=== PATIENT | female | born 1965 | race Caucasian/White ===

== ENCOUNTER → 2018-10-05 19:13 | Outpatient (REF) | payer OTHER, SELFPAY ==
[2018-10-05 19:37] LABS: Alanine Aminotransferase 26 IU/L (9-52); Albumin 4.2 g/dL (3.5-5.0); Albumin Globulin Ratio 1.6 (1.0-2.8); Alkaline Phosphatase 44 U/L (38-126); Aspartate Aminotransferase 26 IU/L (14-36); BUN Creatinine Ratio 23.8 (6-22); Bilirubin Total 0.3 mg/dL (0.2-1.3); Blood Urea Nitrogen 19 mg/dL (7-17); Calcium 9.4 mg/dL (8.4-10.2); Carbon Dioxide 25 mmol/L (22-32); Chloride 102 mmol/L (98-107); Cholesterol 189 mg/dL (140-199); Estimated Glomerular Filt Rate > 60.0 mL/min (>60); Globulin 2.6 g/dL (1.7-4.1); Glucose 109 mg/dL (70-100); HDL Cholesterol 50 mg/dL (40-60); HEMOLYSIS < 15 (0-50); LDL Cholesterol Calculated 106 mg/dL (<100); Potassium 4.4 mmol/L (3.4-5.1); Sodium 138 mmol/L (137-145); Total Protein 6.8 g/dL (6.3-8.2); Triglycerides 165 mg/dL (35-150)
[2018-10-05 19:39] LABS: Add Manual Diff / Slide Review NO; Basophils Percent Auto 0.4 % (0-2); Hematocrit 42.2 % (36-46); Hemoglobin 14.3 g/dL (12.0-16.0); Lymphocytes Percent Auto 24.7 % (25-40); Mean Corpuscular HGB Conc 33.9 % (30-36); Mean Corpuscular Hemoglobin 31.6 PG (26-34); Mean Corpuscular Volume 93.1 fL (80-100); Monocytes Percent Auto 6.7 % (3-14); Neutrophils Absolute Auto 8400 /uL (1500-7000); Neutrophils Percent Auto 66.2 % (50-75); Platelet Count 295 X10^3/uL (150-400); Red Blood Cell Count 4.53 X10^6/uL (4.0-5.2); Red Cell Distribution Width 14.1 % (11.6-14.8); White Blood Cell Count 12.7 X10^3/uL (4.5-11.0)
[2018-10-05 19:58] LABS: Free T3, Triiodothyronine Free 3.08 pg/mL (2.77-5.27); Hemoglobin A1C% w Est Avg Glu 5.1 % (4.0-6.0)
[2018-10-05 20:08] LABS: Carcinoembryonic Antigen 6.9 ng/mL (0.1-3.0)
[2018-10-05 20:12] LABS: Thyroid Stimulating Hormone 3.09 uIU/mL (0.47-4.68)
[2018-10-05 20:21] LABS: Erythrocyte Sedimentation Rate 4 MM/HR (0-20)
== END ==
LOC: LAB 19:13
PROVIDERS: Visit Provider Nurse Practitioner Acute Care
DX: Z79.899 Other long term (current) drug therapy (principal); R53.83 Other fatigue; E66.3 Overweight; R94.6 Abnormal results of thyroid function studies; E04.9 Nontoxic goiter, unspecified; Z13.1 Encounter for screening for diabetes mellitus
CPT/HCPCS: 80053; 80061; 82378; 83036; 84439; 84443; 84481; 85025; 85651

== ENCOUNTER → 2019-02-08 19:01 | Outpatient (ROUT) | payer OTHER, SELFPAY | PROVIDERS: Visit Provider Nurse Practitioner Acute Care | DX: R82.90 Unspecified abnormal findings in urine (principal) | CPT/HCPCS: 87086 ==

== ENCOUNTER 2019-10-13 08:19 | Day surgery (SDC) | payer OTHER, SELFPAY ==
[2019-10-05 13:23] VITALS: BMI 34.0
[2019-10-13] VITALS (13 sets, daily range): BP systolic 117–163; BP diastolic 72–90; PULSE 73–96; RESP 9–17; TEMP 35.9–36.8; O2SAT 89–100; BMI 34.0
--- NOTE | 2019-10-13 | DI.RAD.S_ITS ---
PROCEDURE: XR CERVICAL SPINE 2V OR 3V INDICATIONS: C5-6 ACDF TECHNIQUE: 2 view(s) of the cervical spine were acquired. COMPARISON: None. FINDINGS: Bones: Normal alignment is present, in this patient with C5-6 anterior fusion plate placement, documented by this immediate postoperative examination. Soft tissues: No prevertebral soft tissue swelling. IMPRESSION: Normal alignment established associated with C5-6 anterior fusion plate. Dictated by: Luciano Hernandes M.D. on 10/13/2019 at 13:48 Approved by: Luciano Hernandes M.D. on 10/13/2019 at 13:49
[2019-10-13] MEDS: LACTATED RINGERS 1,000 ML 42 ML IV ×2 (09:10→12:20)
--- NOTE | 2019-10-13 10:29 | PM.PREOP ---
Pre-operative Note Interval Note History & Physical reviewed/Exam performed by Physician: Yes Changes to H&P: No
[2019-10-13] MEDS: MIDAZOLAM 2 MG/2 ML VIAL IV (10:30)
[2019-10-13] MEDS: CEFAZOLIN 2 GM/100 ML FROZ.PIGGY IV (10:39)
--- NOTE | 2019-10-13 11:12 | SUR.OPER ---
Supine, head on gel donut. Arms padded with gel pads, tucked at sides, towel roll under shoulders. Safety belt at thigh. Legs uncrossed.
[2019-10-13] MEDS: BUPIVACAINE 0.25% W/ EPI (PF) 10 ML VIAL 20 ML INJ (11:20)
--- NOTE | 2019-10-13 12:11 | P.OP_ITS ---
Operative Date/Time/Diagnoses Date of procedure: 10/13/19 Time of procedure: 11:12 Pre-op diagnosis: 1. C5-6 spinal stenosis 2. C5-6 spondylosis with radiculopathy Post-op diagnosis: same Procedure & Clinicians Procedure: 1. C5-6 anterior cervical diskectomy and fusion 2. C5-6 anterior interbody cage placement 3. C5-6 anterior instrumentation with plate and screw placement in C5 and C6 vertebrae 4. Utilization of microsurgical technique and operating microscope Same procedure as scheduled: Yes Indications: Patient has been having chronic neck pain and worsening cervical radiculopathy. Patient failed multiple conservative management with worsening pain weakness and numbness in her upper extremity. Patient has been having difficulty performing activity of daily living. After discussing risks benefits of treatment options, patient elected proceed with surgery. Surgeon: Hua Garsia Industrial Recruiter: Sierra Sawyer Click Yes if Unassisted: No Anesthesia Type: General Operative Notes Closure Type: primary Specimen(s): none sent Prosthetic devices, grafts, tissues, transplants, or devices: Globus Extend plate, PEEK cage Estimated Blood Loss (mL): 10 Blood products transfused: none Procedure in detail: Patient was seen in the preoperative area. Risks and benefits of the surgery was discussed with the patient. Informed consent was obtained from the patient and placed in the chart. Surgical site was marked. Patient was taken to the operative room. General anesthesia was administered. Prophylactic antibiotic was given to the patient less than 30 min before the incision was made. Patient was placed into a supine position on a radiolucent table. Patient's shoulders were taped down to allow proper C-arm imaging. Anterior cervical area was prepped and draped in a sterile fashion. Time-out was performed at this time. Using lateral C-arm imaging, the level between C5 and C6 was identified and marked on patient's neck. A oblique incision from midline towards medial border of sternocleidomastoid muscle was made. The platysma muscle was incised in line with skin incision. Metzenbaum scissor was used to develop the plane between the medial border of sternocleidomastoid and the strap muscles medially. The carotid sheath and its contents were identified and protected behind the hand-held retractor during the entire case. The plane between the carotid sheath and strap muscles was developed with Metzenbaum scissors. Dissection was made down to the level of the anterior cervical fascia. Longus colli muscle was incised on the anterior aspect of vertebral bodies bilaterally from C5-C6. Spinal needle was p laced into the C5-6 disc space and confirmed with lateral C-arm imaging. Using microsurgical technique and operative microscope, anterior cervical diskectomy was performed at C5-6 level. This was done by removing the disc material, removing the anterior and posterior osteophytes posterior longitudinal ligaments along with performing bilateral foraminotomies at the C5-6 levels. Patient was found to have severe foraminal stenosis. Patient's stenosis was fully decompressed after decompression was completed. After the diskectomy was completed, an anterior interbody cage was obtained. The cage was packed with DBM bone grafting material. One cage each along with the bone grafting material was then packed into the interbody space at C5-6 along with an anterior cervical plate. The cervical plate was stabilized to the C5-C6 vertebrae using screws. After confirming placement of the hardware with AP and lateral C-arm imaging, the screws were locked into the plate using the locking mechanism and torque limiting screwdriver. After the hardware was placed and confirmed with AP and lateral C-arm imaging, the wound was irrigated with sterile normal saline. The platysma muscle and the subcutaneous tissue was closed with 2-0 Vicryl. The skin was closed with 4-0 Monocryl and Steri-Strips. Patient tolerated the procedure well. Patient was transferred recovery room in stable condition. There were no complications. Complications: none Post-operative Condition: stable Disposition: same day surgery Plan for aftercare: Discharge to home
[2019-10-13] MEDS: hydrOXYzine 50 MG/ML INJ 25 MG IM (12:43)
[2019-10-13] MEDS: fentaNYL 100 MCG/2 ML INJ IV ×2 (12:43→12:56)
[2019-10-13] MEDS: LORazepam 2 MG/ML INJ 0.5 MG IV (12:44)
[2019-10-13] MEDS: HYDROMORPHONE 2 MG INJ IV (13:21)
[2019-10-13] MEDS: HYDROMORPHONE 0.5 MG INJ IV (14:50)
--- NOTE | 2019-10-13 14:51 | PC.NURSE ---
Addendum entered by Nitza Oconnell R.N. 10/13/19 14:55: No orders for post op pain control, multiple calls into OR, as Dr Garsia is in on a case, Pt anxious, painful. Verbal orders obtained by coordinator for IV P Dilaudid. Given. Original Note: Arrival from PACU Pt arrives via stretcher, drowsy. Moaning with movement. Dressing is CDI soft cervical collar in place. Pt requests to get up to BSC, assist OOB. Pt standing well. Denies numbness or tingle. Voided 850mls. Snack provided. 2L o2, current smoker. Rates pain 8/10 at present.
== END 2019-10-13 18:00 | disposition home or self-care (01) ==
LOC: OR 12:17 → AC 14:08
PROVIDERS: PCP Physician Assistant; Visit Provider Orthopaedic Surgery Orthopaedic Surgery of the Spine
PROC: (CPT 22551; principal; 2019-10-13 10:45)
DX: M48.02 Spinal stenosis, cervical region (principal); M47.22 Other spondylosis with radiculopathy, cervical region; M43.12 Spondylolisthesis, cervical region; I10 Essential (primary) hypertension; E78.5 Hyperlipidemia, unspecified; F17.210 Nicotine dependence, cigarettes, uncomplicated
CPT/HCPCS: 22551; 22853; 72040; 76000; C1776; J0330; J0690; J1100; J1170; J2060; J2250; J2405; J2704; J3010; J3410